=== PATIENT | female | born 1925 | race Caucasian/White ===

== ENCOUNTER 2016-03-05 17:17 | Inpatient (IN) | payer OTHER ==
[~2016-03-05] VITALS: Ht 152.4 cm; Wt 78.0 kg
--- NOTE | ~2016-03-05 | H ---
[facility] [place] [address] HISTORY AND PHYSICAL Name: RASHARD VALDOVINOS Room #: 412-P [facility] IN M.R.#: [id number] Admission: 03/05/16 Attend Phys: Rick Mullins MD Discharge: 03/10/16 Date of : [birth year] Report #: [id number] THIS REPORT FOR: //name// CC: Rick Mullins DATE OF SERVICE: 03/05/2016 CHIEF COMPLAINT: Cough and shortness of air and fatigue. HISTORY OF PRESENT ILLNESS: The patient is an 89-year-old female who presents to our clinic with her who are both ill and he is positive for flu. She is having the same symptoms of cough, weakness and fatigue. She had fever at home. PAST MEDICAL HISTORY: Significant for: 1. Hypertension. 2. Hyperlipidemia. 3. Breast cancer. FAMILY HISTORY: Brothers with coronary artery disease. Mother with colon cancer. SOCIAL HISTORY: She is a nonsmoker, nondrinker, lives independently with her . MEDICATIONS: Valsartan HCTZ 160/25 one daily, mirtazapine ____ mg at bedtime, Zoloft 50 mg a day. REVIEW OF SYSTEMS: CONSTITUTIONAL: Positive for fevers, chills or malaise. HEENT: No headaches or visual changes. She does have the congestion, however. CHEST: She has a cough and decreased exercise tolerance and some sputum and wheezing. No chest pain. GASTROINTESTINAL: No nausea, vomiting, diarrhea or constipation. GENITOURINARY: No burning or frequency. EXTREMITIES: No new complaints. SKIN: No new rashes or wounds: PHYSICAL EXAMINATION: VITAL SIGNS: Her temperature is 101.5, pulse 57, respiratory rate is 18, sats 92% on room air, blood pressure 136/64. GENERAL: She is awake, but does appear ____. Her mucous membranes are dry. NECK: Supple, without adenopathy, thyromegaly or bruits. CHEST: Shows basilar crackles. CARDIOVASCULAR: Regular rhythm without murmur. ABDOMEN: Soft, no masses. Bowel sounds are active. [facility] [address] [address] HISTORY AND PHYSICAL Name: RASHARD VALDOVINOS Room #: 412-P [facility] IN M.R.#: [id number] Admission: 03/05/16 Attend Phys: Rick Mullins MD Discharge: 03/10/16 Date of : [birth year] Report #: [id number] EXTREMITIES: Show no edema. Pulses are intact. ASSESSMENT: 1. Pneumonia. 2. Influenza. 3. Fatigue. PLAN: 1. We will admit, start her on Tamiflu in light of her 's positive flu test ____ negative. 2. For the pneumonia, start her on Rocephin and Zithromax, breathing treatments, Tylenol for the fever. We will give IV fluids as well. <ELECTRONICALLY SIGNED> By: Rick Mullins MD 03/17/16 [id number] Rick Mullins MD /paola
[~2016-03-05 17:17] MED LIST: CALCIUM 500 +1 EAC5 PO; CIPRO250 M1 PO; DELTA D3400 UNIT PO; FISH OIL 1,0001 EAC5 PO; FLAGYL500 MG PO; HYDROCHLOROTHIA25 M1 PO; LIPITOR20 MG PO; LISINOPRIL-HCT1 EAC2 PO; LISINOPRIL5 MG PO; MULTIVITAMINS1 EAC6 PO; MULTIVITAMINS1 EAC7 PO; PRAVASTATIN SOD80 MG PO; RESTORIL7.5 MG PO; VALSARTAN-HCTZ1 EAC2 PO; VICODIN 5-5001 EACH PO; ZOFRAN ODT4 MG PO
[2016-03-06] VITALS: BP 133/59
[2016-03-06 04:00] VITALS: BP 135/50
[2016-03-06 06:25] LABS: HEMATOCRIT 29.5 % (37.0-47.0); MCH 30.1 pg (26.0-34.0); MCHC 34.1 % (28.0-37.0); MCV 88.4 fL (80.0-100.0); RBC 3.34 mil/uL (4.20-5.00); RDW 14.2 % (10.5-14.5); WBC 4.6 thou/uL (4.0-11.0)
[2016-03-06 06:36] LABS: CALCIUM 8.9 mg/dL (8.5-10.1); CREATININE 1.2 mg/dL (0.6-1.3); POTASSIUM 3.2 mmol/L (3.5-5.1)
[2016-03-06 08:00] VITALS: BP 130/75
[2016-03-06 16:15] VITALS: BP 128/55
[2016-03-06 19:40] VITALS: BP 132/42
[2016-03-07 04:00] VITALS: BP 135/56
[2016-03-07 05:48] LABS: HEMATOCRIT 28.7 % (37.0-47.0); HEMOGLOBIN 9.6 gm/dL (12.0-15.0); MCHC 33.5 % (28.0-37.0); MCV 89.7 fL (80.0-100.0); RBC 3.21 mil/uL (4.20-5.00); RDW 14.4 % (10.5-14.5); WBC 4.7 thou/uL (4.0-11.0)
[2016-03-07 06:06] LABS: CALCIUM 8.5 mg/dL (8.5-10.1); POTASSIUM 3.5 mmol/L (3.5-5.1)
[2016-03-07 08:00] VITALS: BP 128/58
[2016-03-07 16:00] VITALS: BP 142/60
[2016-03-07 19:07] LABS: % SATURATION 7 % (15-55); IRON 15 ug/dL (27-139); TIBC 224 ug/dL (250-450); UIBC 209 ug/dL (118-369)
[2016-03-07 20:00] VITALS: BP 132/49
[2016-03-08 03:46] VITALS: BP 161/73
[2016-03-08 07:50] LABS: CALCIUM 9.1 mg/dL (8.5-10.1); CREATININE 0.8 mg/dL (0.6-1.3); MAGNESIUM 1.8 mg/dL (1.8-2.4); POTASSIUM 4.1 mmol/L (3.5-5.1)
[2016-03-08 07:58] VITALS: BP 122/52
[2016-03-08 09:26] LABS: ABSOLUTE NEUTROPHILS 3.6 thou/uL (1.4-8.2); BASOPHILS 0.1 % (0.0-2.0); HEMATOCRIT 31.9 % (37.0-47.0); HEMOGLOBIN 10.7 gm/dL (12.0-15.0); LYMPHOCYTES 27.8 % (24.0-44.0); MCH 29.9 pg (26.0-34.0); MCHC 33.5 % (28.0-37.0); MCV 89.2 fL (80.0-100.0); MONOCYTES 6.5 % (1.0-8.0); PLATELET COUNT 138 thou/uL (150-400); POLYS 65.6 % (36.0-66.0); RBC 3.58 mil/uL (4.20-5.00); RDW 14.3 % (10.5-14.5); WBC 5.5 thou/uL (4.0-11.0)
[2016-03-08 09:42] LABS: MANUAL DIFF NO
[2016-03-08 15:48] VITALS: BP 129/55
[2016-03-08 20:15] VITALS: BP 135/59
[2016-03-09 04:30] VITALS: BP 164/69
[2016-03-09 05:12] LABS: HEMATOCRIT 29.1 % (37.0-47.0); HEMOGLOBIN 9.9 gm/dL (12.0-15.0); MCH 29.9 pg (26.0-34.0); MCV 87.8 fL (80.0-100.0); RBC 3.31 mil/uL (4.20-5.00); RDW 14.1 % (10.5-14.5); WBC 6.6 thou/uL (4.0-11.0)
[2016-03-09 05:25] LABS: CALCIUM 9.4 mg/dL (8.5-10.1); CREATININE 1.1 mg/dL (0.6-1.3)
[2016-03-09 07:45] VITALS: BP 166/73
[2016-03-09 16:09] VITALS: BP 165/63
[2016-03-09 19:17] VITALS: BP 112/61
[2016-03-10 04:45] VITALS: BP 178/77
[2016-03-10 08:00] VITALS: BP 172/75
[2016-03-10] MEDS ORDERED: CEFDINIR300 MG PO (12:55)
[2016-03-10 13:54] VITALS: BP 172/75
[2016-03-10 14:14] VITALS: BP 172/75
== END 2016-03-10 14:43 | disposition home health service (06) | DRG 194 ==
LOC: 4N 17:17
PROVIDERS: Family Medicine; Internal Medicine
DX: J11.00 Influenza due to unidentified influenza virus with unspecified type of pneumonia (principal); N17.9 Acute kidney failure, unspecified; I10 Essential (primary) hypertension; E78.5 Hyperlipidemia, unspecified; D64.9 Anemia, unspecified; E86.0 Dehydration; Z66 Do not resuscitate; R19.7 Diarrhea, unspecified; Z85.3 Personal history of malignant neoplasm of breast; Z82.49 Family history of ischemic heart disease and other diseases of the circulatory system; Z80.0 Family history of malignant neoplasm of digestive organs; Z88.6 Allergy status to analgesic agent; Z88.8 Allergy status to other drugs, medicaments and biological substances; J98.01 Acute bronchospasm; A08.4 Viral intestinal infection, unspecified
CPT/HCPCS: 10790

== ENCOUNTER → 2016-03-18 | Outpatient (CLI) | payer OTHER ==
[~2016-03-18] MED LIST changes: +CEFDINIR300 MG PO
== END ==
LOC: RAD 16:33
DX: J18.9 Pneumonia, unspecified organism (principal); R91.8 Other nonspecific abnormal finding of lung field